=== PATIENT | male | born 1960 | race Caucasian/White ===

== ENCOUNTER 2023-04-28 13:05 | Emergency (ER) | payer OTHER, SELFPAY ==
[2023-04-28 13:12] VITALS: BP 141/99
[2023-04-28 14:30] VITALS: BP 127/81
[2023-04-28 14:41] LABS: % Basophils 0.7 % (0-2); % Eosinophils 0.9 % (0-6); % Immature Granulocytes 0.3 % (0-0.5); % Lymphocytes 26.7 % (20.5-51.1); % Neutrophils 64.4 % (42.2-75.2); Absolute Basophils 0.1 10^3/uL (0-0.2); Absolute Eosinophils 0.1 10^3/uL (0-0.7); Absolute Lymphocytes 2.6 10^3/uL (1.2-3.4); Absolute Monocytes 0.7 10^3/uL (0.1-0.6); Absolute Neutrophils 6.2 10^3/uL (1.4-6.5); Hemoglobin 14.9 g/dL (13.0-18.0); Mean Corp Hgb Conc. 34.7 g/dL (33.0-37.0); Mean Corpuscular Hgb 30.7 pg (27.0-31.0); Mean Corpuscular Volume 88.5 fL (80.0-94.0); Mean Platelet Volume 9.6 fL (7.4-10.4); Nucleated Red Blood Cells % 0 % (-); Platelet Count 320 10^3/uL (130-400); Red Blood Cell Count 4.86 10^6/uL (4.70-6.10); Red Cell Dist. Width 12.9 % (11.5-14.5); White Blood Cell Count 9.6 10^3/uL (4.8-10.8)
[2023-04-28 14:51] LABS: ALT (SGPT) 19 U/L (0-50); AST (SGOT) 25 U/L (17-59); Albumin 3.9 g/dl (3.5-5.0); Alkaline Phosphatase 64 U/L (38-126); Blood Urea Nitrogen 25 mg/dl (9-20); Calcium 9.5 mg/dl (8.4-10.2); Carbon Dioxide 25 mmol/L (22-30); Chloride 103 mmol/L (98-107); Glucose 117 mg/dl (70-99); Potassium 4.2 mmol/L (3.5-5.1); Sodium 137 mmol/L (135-145); Total Bilirubin 0.6 mg/dl (0.2-1.3); Total Protein 7.1 g/dl (6.3-8.2); eGFR > 60.00
[2023-04-28 15:00] VITALS: BP 152/108
[2023-04-28 15:00] LABS: Lipase 109 U/L (23-300); Troponin I < 0.012 ng/ml
[2023-04-28 16:14] VITALS: BP 126/83
--- NOTE | 2023-04-28 16:14 | ED.GENMED ---
History of Present Illness
General
Chief Complaint: Musculo-Skeletal Complaint
Source: patient and other (Friend)
Exam Limitations: none
Time Seen by Provider: 04/28/23 13:49
Travel History
Have you had any contact with someone who has COVID-19?: No
Do you have any symptoms of coronavirus? Fever > 100 degrees, chills, cough, shortness of breath, sore throat, loss of taste or smell, muscle aches, or headache?: No
History of Present Illness
History of Present Illness:
62-year-old male who presents describes discomfort in his chest with some tingling in his left shoulder and arm. Patient states has been going on for couple days but today has been mostly constant throughout the day. Patient states he has been
drinking alcohol frequently. He denies drug use. Not a smoker. No motor weakness. Symptoms do not seem to be much exacerbated by exertion.
Past History
Past History
ED Past Medical History: Other (Prostate cancer, skin cancer, perforated colon with colon resection, colostomy with reversal, bladder tumor)
ED Past Surgical History: Bowel resection
Social History
Tobacco: Non-smoker
Alcohol: Daily
Phy Exam
Physical Exam
Physical Exam:
CONSTITUTIONAL Patient alert and oriented to person, place and time. Well-appearing. Vital signs reviewed.
HEAD atraumatic, normocephalic.
EYES eyelids normal to inspection, Pupils equally round and reactive to light, Extraocular muscles intact, Conjunctiva normal, Sclera normal.
NECK normal range of motion, Trachea midline, no jugular venous distention.
RESPIRATORY CHEST No respiratory distress noted, Chest expansion equal, Bilateral breath sounds clear.
CARDIOVASCULAR regular rate and rhythm, Heart sounds normal.
ABDOMEN abdomen nontender, Bowel sounds normal. No distention.
BACK normal inspection, no obvious deformities
UPPER EXTREMITY range of motion normal, Motor strength normal, no cyanosis, no edema.
LOWER EXTREMITY range of motion normal, Motor strength normal, no cyanosis, no edema.
NEURO Speech normal, No focal motor deficits, Langley coma scale 15, Memory normal, Cranial Nerves intact to screening exam.
SKIN skin warm, dry, and normal in color.
PSYCHIATRIC patient oriented to person place and time, Normal affect.
Course
Orders/Labs/Results
Orders:
Orders
04/28/23 13:12
Electrocardiogram (*1) Urgent
Reason for Study: Chest Pain
EKG- Treatment ONCE
04/28/23 14:10
Cardiac Monitoring- Treatment ONCE
CR Chest - 2 Views Urgent
Comment:
Reason For Exam: cp
04/28/23 14:31
Complete Blood Count/With Diff Urgent
Comprehensive Metabolic Panel Urgent
Lipase Urgent
Troponin I Urgent
Abnormal Lab Results
04/28/23
14:31
Absolute Monos (auto) 0.7 H 10^3/uL
(0.1-0.6)
BUN 25 H mg/dl
(9-20)
Glucose 117 H mg/dl
(70-99)
04/28/23 14:31
04/28/23 14:31
Vital Signs
Initial and Last Documented VS:
Initial Vital Signs
Temp Pulse Resp BP Pulse Ox
98.2 F 79 16 141/99 94
04/28/23 13:12 04/28/23 13:12 04/28/23 13:12 04/28/23 13:12 04/28/23 13:12
Last Documented Vital Signs
Temp Pulse Resp BP Pulse Ox
98.2 F 84 15 152/108 94
04/28/23 13:12 04/28/23 15:00 04/28/23 15:00 04/28/23 15:00 04/28/23 15:00
MDM/Problems Addressed
MDM/Problems Addressed:
Alcohol use, atypical chest pain
*Pulse Oximetry
Patient hypoxic: no
*EKG
Interpreted by ED Provider?: Yes
Interpretation: normal
Rate: normal
Rhythm: sinus
Dexter: normal axis
Ischemia: no ischemia
*Acetylene Gas Compressor Interpretation
Rate: normal
Interpretation: normal
Rhythm: sinus
*Critical Care Note
Total Time (30-74mins, 75-104mins- exclusive of procedures): Not Applicable
Data Reviewed
Source: patient and other (friend)
Prescriptions/Medications Considered But Not Given:
considered CTA but no PE risks. no concerns for dissection.
Patient Management
Escalation/DeEscalation of care consider admission/obs:
Patient appears well. Symptoms have been constant. Troponin negative. Chest x-ray and EKG unremarkable. Counseled on importance of cessation of alcohol use and offered B cares. Recommended outpatient follow-up
ED Attending Note
-
Portions of this chart may have been created with voice recognition software.� Occasional wrong word or��sound alike� substitutions may have occurred due to the inherent limitations of voice recognition software.
Discharge Plan
Departure
Patient Disposition: Home (Routine Discharge)
Date of Disposition: 04/28/23
Time of Disposition: 16:18
Patient with high blood pressure during this ER visit?: Yes
Discharge Problem:
Chest pain, Alcohol abuse
Instructions: Alcohol Use Disorder ED, Chest Pain CBC Follow Up
Prescriptions:
No Action
hydrocodone-acetaminophen 1 EACH tablet
0.5 ea PO BID
alprazolam 0.5 MG tablet
0.25 mg PO Q6HPRN PRN (Reason: anxiety)
zaleplon [Sonata] 10 MG capsule
10 mg PO HS PRN (Reason: sleep)
escitalopram oxalate 10 MG tablet
20 mg PO HS
multivitamin with folic acid [Tab-A-Angela] 1 TABLET tablet
1 tab PO DAILY
Bio-Aller(Mold)
1 drp PO PRN PRN (Reason: allergies)
Bio-Allers (Pollen/Hayfever)
1 dropperett PO PRN PRN (Reason: allergies)
Nad Plus
1 tab PO DAILY
Referrals:
Jas Glynn MD [Family Provider] -
Activity Restrictions/Additional Instructions:
Please take 81 mg of aspirin a day. Please avoid strenuous or exertional activity until cleared by cardiology. Please see cardiology in the next 48 hours for reevaluation. Return immediately for worsening pain, shortness breath, palpitations,
sweating, nausea, weakness of any kind, numbness, tingling or any other concerns.
Cardiology has been notified and a follow up appointment has been requested. Someone will call you on the next business day to schedule a follow up appointment.
Please stop drinking alcohol.
Your blood pressure was elevated while in the Emergency Department, please have your doctor re-evaluate it in the next 48 hours as untreated hypertension may lead to serious complications.
Interventions
Interventions:
*ED COVID-19 Vaccine History Last Done: 04/28/23 13:12
ED-Musculoskeletal Assessment Last Done: 04/28/23 14:40
== END 2023-04-28 16:35 | disposition home or self-care (01) ==
LOC: EMR 13:05
PROVIDERS: EMERGENCY PHYSICIAN Emergency Medicine; FAMILY PHYSICIAN Family Medicine
DX: R07.89 Other chest pain (principal); M79.602 Pain in left arm; R20.2 Paresthesia of skin; F10.10 Alcohol abuse, uncomplicated; Z85.828 Personal history of other malignant neoplasm of skin; Z85.46 Personal history of malignant neoplasm of prostate; Z98.0 Intestinal bypass and anastomosis status; Z88.0 Allergy status to penicillin; Z91.048 Other nonmedicinal substance allergy status
CPT/HCPCS: 99283; 71046; 80053; 83690; 84484; 85025; 93005